=== PATIENT | female | born 1955 | race Caucasian/White ===

== ENCOUNTER → 2016-08-07 | Outpatient (CLI) | payer OTHER ==
--- NOTE | 2016-08-07 17:35 | MA ---
Bilateral Screening Digital Mammograms With iCAD Clinical Indications: Routine screening mammograms. Technique: Standard digital cephalocaudal and mediolateral oblique projections were obtained. This examination was processed by the iCAD computer-aided detection system. Comparison: 2014, 2013, 2012. Breast density: 2: 25 to 50%. Findings: Computer-aided detection was reviewed. No suspicious abnormalities in either breast. Compu ter-aided detection (iCAD) is negative. Impression: 1. ACR BI-RADS 1: Negative. 2. No mammographic evidence of malignancy. Recommendation: 1. If physical exam is negative, recommend annual mammograms with next mammogram August 2017. 2. Dense mammographic pattern limits the sensitivity of mammography in this patient. If there is a cl inically palpable abnormality, recommend additional imaging with ultrasound, if clinically indicated. [facility] will send a result letter to the patient. Negative mammography should not preclude additional workup of a clinically suspicious finding. The patient's information is entered into a reminder system with a target due date for her next mammo gram.
== END ==
LOC: BRMIMAGING 12:54
DX: Z12.31 Encounter for screening mammogram for malignant neoplasm of breast (principal)
CPT/HCPCS: G0202

== ENCOUNTER → 2017-08-14 | Outpatient (CLI) | payer OTHER | LOC: BRMIMAGING 12:41 | PROVIDERS: ATTEND Internal Medicine Hematology & Oncology | DX: Z12.31 Encounter for screening mammogram for malignant neoplasm of breast (principal); Z85.72 Personal history of non-Hodgkin lymphomas ==

== ENCOUNTER → 2018-08-17 | Outpatient (CLI) | payer OTHER, MEDICARE | LOC: BRMIMAGING 10:37 | PROVIDERS: ATTEND Family Medicine | DX: Z12.31 Encounter for screening mammogram for malignant neoplasm of breast (principal) ==